=== PATIENT | male | born 1980 | race African-American/Black ===

== ENCOUNTER 2016-06-17 07:22 | Emergency (ER) | payer OTHER ==
[~2016-06-17] VITALS: Ht 175.3 cm; Wt 81.6 kg
[2016-06-17] MEDS ORDERED: ERYTOIN8 OS (08:28)
[2016-06-17] MEDS ORDERED: ERYTHROMYCIN OPHTH OINT OS ONE (08:30)
[2016-06-17 08:34] VITALS: BP 131/65
[2016-06-20] MEDS ORDERED: PATA2.5S OP (08:00)
[2016-06-20] MEDS ORDERED: TRAM50TA2 PO (08:00)
[2016-06-20] MEDS ORDERED: AUGM875T27 PO (08:12)
== END 2016-06-17 08:42 | disposition home or self-care (01) ==
LOC: M ED 08:41
DX: H10.32 Unspecified acute conjunctivitis, left eye (principal)

== ENCOUNTER 2016-07-20 11:26 | Inpatient (IN) | payer OTHER ==
[~2016-07-20] VITALS: Ht 176.5 cm; Wt 83.0 kg
[~2016-07-20 11:26] MED LIST: AUGM875T27 PO; ERYTOIN8 OS; PATA2.5S OU; TRAM50TA2 PO
[2016-07-20 12:57] LABS: MEAN CORPUSCULAR HEMOGLOBIN 29.5 pg (27.0-33.0); MEAN CORPUSCULAR HGB CONC 34.2 g/dl (32.0-36.5); MEAN CORPUSCULAR VOLUME 86.1 fl (80.0-96.0); RED CELL DISTRIBUTION WIDTH 13.5 % (11.5-14.5); WHITE BLOOD COUNT 6.3 K/mm3 (4.0-10.0)
[2016-07-20 13:05] LABS: METHADONE URINE NEGATIVE (NEGATIVE)
[2016-07-20 13:07] LABS: ALBUMIN 4.2 GM/DL (3.2-5.2); ALBUMIN/GLOBULIN RATIO 1.17 (1.00-1.93); ALKALINE PHOSPHATASE 84 U/L (45-117); ALT/SGPT 76 U/L (12-78); ANION GAP 9 MEQ/L (8-16); AST/SGOT 95 U/L (15-37); BILIRUBIN,DIRECT 0.1 MG/DL (0.0-0.2); BILIRUBIN,TOTAL 0.5 MG/DL (0.2-1.0); BLOOD UREA NITROGEN 16 MG/DL (7-18); CALCIUM LEVEL 8.8 MG/DL (8.5-10.1); CARBON DIOXIDE LEVEL 25 MEQ/L (21-32); CHLORIDE LEVEL 105 MEQ/L (98-107); CREATININE FOR GFR 1.19 MG/DL (0.70-1.30); GLOMERULAR FILTRATION RATE > 60.0 (>60); GLUCOSE, FASTING 97 MG/DL (70-105); POTASSIUM SERUM 4.1 MEQ/L (3.5-5.1); SODIUM LEVEL 139 MEQ/L (136-145); TOTAL PROTEIN 7.8 GM/DL (6.4-8.2)
[2016-07-20] MEDS ORDERED: MAALOX 30 ML SUSP *UDC PO PRN (14:15)
[2016-07-20] MEDS ORDERED: traZODone 50 MG TAB PO PRN (14:15)
[2016-07-20] MEDS ORDERED: traMADol 50 MG TAB PO PRN (14:15)
[2016-07-20] MEDS ORDERED: ACETAMINOPHEN TAB 650MG DOSE (2X325MG) PO PRN (14:15)
[2016-07-20] MEDS ORDERED: MOM 30ML SUSPENSION UDC PO PRN (14:15)
[2016-07-20] MEDS ORDERED: ESCI10TA2 PO (14:23)
[2016-07-20] MEDS ORDERED: CETI10TA PO (14:23)
[2016-07-20] MEDS ORDERED: FLON1SPR (14:23)
[2016-07-20 15:47] VITALS: BP 136/84
[2016-07-20] MEDS ORDERED: CETIRIZINE (ZyrTEC) 10 MG TAB PO PRN (21:45)
[2016-07-20] MEDS ORDERED: FLUTICASONE PROP 0.05% NASAL SPRAY 16 GM (FLONASE) PRN (21:45)
[2016-07-20] MEDS ORDERED: OLOPATADINE 0.1% OPHTH SOL 5ML(PATANOL) OU PRN (21:45)
[2016-07-21 07:36] LABS: ALBUMIN 3.8 GM/DL (3.2-5.2); ALBUMIN/GLOBULIN RATIO 1.23 (1.00-1.93); BILIRUBIN,DIRECT 0.2 MG/DL (0.0-0.2); BILIRUBIN,TOTAL 0.6 MG/DL (0.2-1.0); TOTAL PROTEIN 6.9 GM/DL (6.4-8.2)
--- NOTE | 2016-07-21 08:17 | HPE ---
DATE OF ADMISSION: 07/20/2016 Please refer to psychiatric history and evaluation for further details on this admission. This examination and history is intended for medical issues which may need treatment, followup or consult on this 36-year-old male. PRIMARY CARE PROVIDER: Vipin. ALLERGIES: No known allergies. 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 ETOH none. Smokes none. Recreational drug use none. PAST MEDICAL HISTORY: Environmental allergies. PAST SURGICAL HISTORY: Negative. HOME MEDICATIONS: - cefatrizine 10 mg by mouth daily as needed allergies - Lexapro 10 mg by mouth daily - Flonase one spray per nostril twice daily as needed allergies - Patanol 0.1% solution one drop both eyes daily as needed allergies - tramadol 50 mg by mouth every 6 hours as needed for back pain FAMILY HISTORY: Noncontributory. CBC was normal. Electrolytes are normal. AST 95. Toxicology screen was negative. Ten systems review was done and other than environmental allergies, patient had no complaints. No complaints of back pain. PHYSICAL EXAMINATION: 36-year-old cooperative male in no acute distress. Height 69.5 inches, weight 83 kg. BMI 26.6. Blood pressure 136/84, pulse 60, respirations 16, temperature 97.6. The patient is alert and oriented times three. Pupils equal and reactive to light. Extraocular movements intact. Cornea and sclera clear. Conjunctiva normal. No facial asymmetry. Pharynx, tongue and gums pink and moist. Tongue is midline. Neck is supple, without lymphadenopathy. No thyromegaly. No goiter. Carotids 2+ without bruit. Chest clear to auscultation, without wheeze or retraction. Heart is regular. Abdomen benign. Bowel sounds positive. Genitourinary ()/Rectal: Not done. Extremities show equal strength, full range of motion. No cyanosis, clubbing or edema. Peripheral pulses equal and palpable bilaterally. Skin is warm and dry. IMPRESSION/PLAN: Psychiatric plan per psychiatry. History of environmental allergies. Continue cefatrizine, Flonase and Patanol. No acute medical issues other than AST mildly elevated. Will recheck a liver profile in the morning.
[2016-07-21 21:00] VITALS: BP 144/81
[2016-07-22 06:35] VITALS: BP 106/75
--- NOTE | 2016-07-22 15:32 | MHIPNPDOC ---
[facility] Progress Note Progress Note DATE OF SERVICE: 07/22/16 INTERVAL HISTORY: Medication Side effects: The patient is not been started on any psychiatric medications at this time Behavior/events: Has become mildly more social but still reclusive to his room Group Attendance: Has attended groups intermittently Psychiatric Symptoms: Describes difficulty with eating and disrupted sleep pattern. He stated that he had a nightmare the previous evening and that this was problematic until he is awoken by the 15 minute checks. He describes he still feels fairly depressed and feels as though he wants to stay and patient as he is concerned that his situation is severe enough that he is not able to attend to his needs as well as outpatient. VITAL SIGNS: See below. NEW TEST RESULTS: See below CURRENT MEDICATIONS: See below. MENTAL STATUS EXAMINATION: MENTAL STATUS EXAMINATION: General: Well dressed with good hygiene Speech: Spontaneous and fluid Thought processes: Linear and logical Thought content: Perseveration on negativity Abstract reasoning, and computation: Intact Description of associations: Intact Description of abnormal or psychotic thoughts:Denies any suicidal or homicidal ideation. Denies any auditory or visual hallucinations. Does not appear to be responding to internal stimuli. Does not appear to be endorsing any bizarre or paranoid ideation. Judgment: Fair Insight: Fair to poor Orientation: Alert and orientated 3 Recent and remote memory: Intact Attention span and concentration: Intact Fund of knowledge: Adequate Mood: "Bad" Affect: Dysthymic with a constricted range DIAGNOSES: 1. Unspecified bipolar disorder. ASSESSMENT: The patient appears to be still suffering from symptoms despite the therapeutic environment he is agreed to try medicine in order to help with his bipolar depression MANAGEMENT PLAN: Medications: Start Abilify 5 mg at night and Rozerem 4 mg at night when necessary discontinue trazodone as patient does not want to use Psychotherapy: Encourage group therapy Social: Related information from patient to social worker psychiatric about patient wanting clinical information to be given to his jag for his upcoming court case Misc: None Disposition: The patient will need of further inpatient stay to address severe depression with grave disability, whom is unlikely to do [place] an outpatient without further stabilization. TIME SPENT: 20 minutes. Vital Signs Vital Signs Date Time Temp Pulse Resp B/P (MAP) Pulse Ox O2 Delivery O2 Flow Rate FiO2 07/22/16 06:35 97.0 65 20 106/75 (85) 07/20/16 15:47 98 Room Air Current Medications Current Medications Acetaminophen (Tylenol Tab) 650 mg Q6HP PRN PO HEADACHE or DISCOMFORT; Start at 14:15; Stop 08/19/16 at 14:14 Al Hydrox/Mg Hydrox/Simethicone (Mylanta) 30 ml Q4HP PRN PO HEARTBURN/ INDIGESTION; Start 07/20/16 at 14:15; Stop 08/19/16 at 14:14 Aripiprazole (AbiLIFY) 5 mg QHS PO ; Start 07/22/16 at 21:00; Stop 08/21/16 at 20: 59 Cetirizine HCl (ZyrTEC) 10 mg DAILY PRN PO allergies; Start 07/20/16 at 21:45; Stop 08/19/16 at 21:44 Fluticasone Propionate (Flonase 0.05% Nasal [place]) 1 SPRAY IN EACH NOSTRIL BIDP PRN NA allergies; Start 07/20/16 at 21:45; Stop 08/19/16 at 21:44 Home Med (Med Rec Complete!) ASDIRECTED XX ; Start 07/20/16 at 14:30; Stop at 14:30; Status DC Magnesium Hydroxide (Milk Of Magnesia) 30 ml DAILYPRN PRN PO CONSTIPATION; Start 07/20/16 at 14:15; Stop 08/19/16 at 14:14 Olopatadine HCl (Patanol) 1 drop DAILYPRN PRN OU allergies; Start 07/20/16 at 21 :45; Stop 08/19/16 at 21:44 Ramelteon (Rozerem) 4 mg QHS PRN PO sleep; Start 07/22/16 at 15:30; Stop at 15:29 Tramadol HCl (Ultram) 50 mg Q8HP PRN PO PAIN; Start 07/20/16 at 14:15; Stop 01/03 at 14:14 Trazodone HCl (Desyrel) 50 mg QHSP PRN PO INSOMNIA; Start 07/20/16 at 14:15; Stop 07/22/16 at 15:20; Status DC Allergies Coded Allergies: No Known Allergies (Unverified , 06/17/16) GME ATTESTATION My preceptor for this patient encounter was physically present in the building during the encounter and was fully available. As needed, all aspects of the patient interview, examination, medical decision making process, and medical care plan development were reviewed and approved by the preceptor. Preceptor is aware and concurs with the plan as stated in the body of this note and will attest to such by his/her cosignature. TANVI BLAS DO July 22, 2016 15:32
--- NOTE | 2016-07-22 16:31 | MHHPE ---
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 As per the mental health evaluation by Ms. Gusman on his presentation, he described feeling that his 16 years of service in the was being undermined and that he was being Article 15, due to reasons that were superfluous, he was not able to contract for safety at that time. When the patient was met with today, the patient described that although he had symptoms of post-traumatic stress disorder elaborated in his chart work received from [facility], he had the symptoms of hypervigilance and intrusive memories had been resolving on their own without any significant psychiatric intervention. He described that he regularly saw [facility] for talking therapy, but he did describe experiencing depressed mood for the last several months, that became increasingly severe associated with insomnia, fatigue, concentration, focus deficit, hopelessness and a loss of interest in his daily activities. He describes additionally at times he would become hyperphagic and have a more reactive mood at times. He noticed that he did not engage in his normal activities that he enjoys, such as working out and found himself gaining weight where he was described normally before as "very lean." He initially described some vague symptoms of bipolarity, in which there were times in the past where he would go several months without it being more than 3-4 hours at a time that he would be full of energy and impulsive. He described that during one of these episodes he bought a brand new Humvee, despite having recently paid off his last car and noted that he generally would speed very quickly on his motorcycle, much more than he would regularly do. He describes he has never been admitted for such an episode in the past, and had noticed that no one had brought this up to him as a particular problem. He did describe that he does have worry about deadlines, especially when he feels depressed as he is not able to meet them, but these are primarily situational. REVIEW OF PSYCHIATRIC SYMPTOMS: Affective: As above. Anxiety: The patient denies experiencing any discrete episodes of anxiety associated with panic, diaphoresis, chest tightness, or shortness of breath. He does describe worry, but not to an excessive degree and it is usually associated with provoking factors. Trauma: As above. Patient does not meet criteria for post-traumatic stress disorder. Psychosis: The patient denies experiencing any auditory or visual hallucinations in the past or present. He denies experiencing any overt paranoid or delusional ideation in the past. PAST PSYCHIATRIC HISTORY: The patient has never been admitted. Has seen psychiatry only briefly in the past for evaluation of post-traumatic stress disorder. He has never been to an inpatient [facility], and has no history of self-harming behaviors. He reports no previous history of psychiatric medications. FAMILY PSYCHIATRIC HISTORY: He is unaware of any psychiatric histories in his family. SOCIAL HISTORY: The patient grew up in [place], to a generally calm-headed father, but a reactive and sometimes over nichols mother. He describes that he was able to graduate high school, and that he did have a long-term romantic relationship of which he has a daughter from, but that he never that woman, and although he has attempted to be close to her, he describes that he is "unable to." He has no legal history, other than a recent Article 15 for not showing up to a deployment reportedly. However, he is fighting that. He has received disciplinary action for that. 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 He currently resides alone and has never been . MEDICAL HISTORY: He only has environmental allergies. ALLERGIES: He has no known allergies. ADDICTION: Patient does not describe that he uses alcohol to excess. Denies any tobacco or illicit drug use. MENTAL STATUS EXAMINATION: Vital signs: Temperature 96.6, pulse 60, respiratory rate 16, blood pressure 136/84, 98% on room air. The patient is met with in the room with a medical student. He appears to be well-dressed and well-groomed. He greets the interviewer appropriately when he walks in the room. His gait appears generally normal. His mood is described as "okay." His affect is dysthymic and constricted. His thought process appears coherent and generally linear. His thought content consists of a lack of suicidal or homicidal ideation. At this time he denies any auditory or visual hallucinations and does not appear to be responding to internal stimuli. He demonstrates no overtly bizarre paranoid ideation. He appears alert and oriented to his surroundings. Able to relay cogent information. He demonstrates no psychomotor agitation, retardation, tremors or dystonias. His insight and judgment are described as fair. ASSESSMENT: Patient is a 36-year-old male with symptoms consistent with some form of bipolarity. It is not entirely clear of the nature of his condition, but due to that complexity, his treatment will likely require more intensive medical treatment in order to avert and overt conversion to elizabeth. He indeed does suffer from bipolar disorder. DIAGNOSES: Unspecified bipolar disorder. PLAN: At this time, medication options were discussed with the patient including the option of Wellbutrin , an agent is least likely to cause conversion to elizabeth. Additionally, Abilify was offered as well, as this will likely cause more mood stabilizing effects and it is approved for bipolar depression. It is unclear whether the patient is suffering from dysthymia or bipolar II. The patient was given some time to make a decision. Continue psychiatric admission and gather further collateral information. PROBLEMS: Anxiety, depression, poor coping skills. My preceptor for this patient encounter was Dr. Tara Alex. The preceptor was physically present in the building during the encounter and was fully available as needed. All aspects of the patient interview, examination, medical decision making process, and medical care plan development were reviewed and approved by the preceptor. The preceptor is aware and concurs with the plan as stated in the body of this note and will attest to such by his/her co-signature. HANNA
[2016-07-22 18:00] VITALS: BP 130/88
[2016-07-23 05:55] VITALS: BP 122/75
[2016-07-23 06:45] VITALS: BP 122/75
--- NOTE | 2016-07-23 15:53 | IPN ---
DATE: 07/23/2016 CHIEF COMPLAINT: Says feels the same. SUBJECTIVE: He is seen for followup in the presence of staff. He says feels the same, and is concerned that being here does not change his situation on the outside, says he does not think that he will be able to return to the same unit, expresses frustrations over that. Sleep has improved. Appetite is fair. Denies any suicidal thoughts or intents. MENTAL STATUS EXAMINATION: Neat, cooperative. No agitation. He is coherent. Affect is restricted, but shows some reactivity. Denies any thoughts of harming himself or anyone else at present, no overt evidence of psychosis. Judgment is questionable, as is insight. ASSESSMENT: 1. Unspecified bipolar disorder. 2. Rule out persistent depressive disorder. PLAN: Continue current care, including the Abilify, which has just been started. I would suggest that he participate in activities in the unit. Concerns regarding his returning to the same work situation, the unit, ought to be discussed prior to discharge. VITAL SIGNS: Are as listed: Blood pressure 122/75, pulse 58, temperature 97.5.
[2016-07-23 18:00] VITALS: BP 122/69
[2016-07-24 06:18] VITALS: BP 155/74
[2016-07-24 18:00] VITALS: BP 122/70
--- NOTE | 2016-07-24 20:45 | IPN ---
DATE: 07/24/2016 CHIEF COMPLAINT: Feels okay. SUBJECTIVE: Is seen for followup in the presence of staff. Says feels okay, also suggests has had concerns about returning to the unit. Says that this is his main worry. MENTAL STATUS EXAMINATION: He is neat. He is lying in bed. He is cooperative. No agitation. No psychomotor retardation. Coherent. Affect is restricted but reactive. He denies any thoughts of harming himself or anyone else at present. No evidence of psychosis. Judgment is fair. Insight is fair as well. ASSESSMENT: 1. Unspecified bipolar disorder. 2. Rule out persistent depressive disorder. PLAN: Continue current care and observations. Encouraged participation in activities in the unit. Further recommendations will be made depending on the clinical picture. He will be seeing his assigned psychiatrist tomorrow.
[2016-07-24] MEDS: RAMELTEON 8 MG TAB (ROZEREM) PO PRN (23:33)
[2016-07-25 06:54] VITALS: BP 136/65
[2016-07-25] MEDS: LURASIDONE 20 MG TAB (LATUDA) PO SCH (17:45)
--- NOTE | 2016-07-25 17:51 | MHIPNPDOC ---
[facility] Progress Note Progress Note DATE OF SERVICE: 07/25/16 INTERVAL HISTORY: Medication Side effects: The patient reports having jaw clenching and tightness with the Abilify over the weekend, did not have any other side effects Behavior/events: Has been reclusive to his room and generally difficult to bring out. However he is friendly and amenable upon approach with no episodes of agitation Group Attendance: Has not been attending groups fairly frequently although does intermittently come to groups though not noted engagement in the process Psychiatric Symptoms:His depressive symptoms have not resolved he still feels fairly hopeless and anhedonic. He describes that he is having difficulty socializing and engaging in the therapeutic milieu. He describes that he is still having anxiety about the duration with the principal military analyst and the possibility of having a chapter 15 proceeding VITAL SIGNS: See below. NEW TEST RESULTS: See below CURRENT MEDICATIONS: See below. MENTAL STATUS EXAMINATION: General: Well dressed with good hygiene Speech: Spontaneous and fluid Thought processes: Linear and logical Thought content: Perseverative on depression Abstract reasoning, and computation: Intact Description of associations: Intact Description of abnormal or psychotic thoughts:Denies any suicidal or homicidal ideation. Denies any auditory or visual hallucinations. Does not appear to be responding to internal stimuli. Does not appear to be endorsing any bizarre or paranoid ideation. Judgment: Fair Insight: Poor Orientation: Alert and orientated 3 Recent and remote memory: Intact Attention span and concentration: Intact Fund of knowledge: Adequate Mood: "Okay" Affect: Dysthymic and constricted DIAGNOSES: 1. Unspecified bipolar disorder. 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 He is amenable trying Latuda after informed consent was completed MANAGEMENT PLAN: Medications: Discontinue Abilify and start Latuda 20 mg this afternoon monitor for side effects Psychotherapy: Encourage group attendance Social: Social work to see about chain of command meeting to coordinate efforts for [facility] hydrator and other legal issues that are likely stressors for the patient Misc: Let her completed on Monday afternoon that was sent to his jag's office at the patient's behest with a release of information signed Disposition: The patient will need of further inpatient stay to address severe depression. TIME SPENT: 25 minutes. Vital Signs Vital Signs Date Time Temp Pulse Resp B/P (MAP) Pulse Ox O2 Delivery O2 Flow Rate FiO2 07/25/16 06:54 97.9 63 16 136/65 (88) 07/23/16 05:55 Room Air 07/20/16 15:47 98 Current Medications Current Medications Acetaminophen (Tylenol Tab) 650 mg Q6HP PRN PO HEADACHE or DISCOMFORT; Start at 14:15; Stop 08/19/16 at 14:14 Al Hydrox/Mg Hydrox/Simethicone (Mylanta) 30 ml Q4HP PRN PO HEARTBURN/ INDIGESTION; Start 07/20/16 at 14:15; Stop 08/19/16 at 14:14 Aripiprazole (AbiLIFY) 5 mg QHS PO Last administered on 07/24/16 20:54; Start 07/22/16 at 21:00; Stop 07/25/16 at 13:14; Status DC Cetirizine HCl (ZyrTEC) 10 mg DAILY PRN PO allergies; Start 07/20/16 at 21:45; Stop 08/19/16 at 21:44 Fluticasone Propionate (Flonase 0.05% Nasal [place]) 1 SPRAY IN EACH NOSTRIL BIDP PRN NA allergies; Start 07/20/16 at 21:45; Stop 08/19/16 at 21:44 Home Med (Med Rec Complete!) ASDIRECTED XX ; Start 07/20/16 at 14:30; Stop at 14:30; Status DC Lurasidone HCl (Latuda) 20 mg DAILY@18 PO Last administered on 07/25/16 17:45; Start 07/25/16 at 18:00; Stop 08/24/16 at 17:59 Magnesium Hydroxide (Milk Of Magnesia) 30 ml DAILYPRN PRN PO CONSTIPATION; Start 07/20/16 at 14:15; Stop 08/19/16 at 14:14 Olopatadine HCl (Patanol) 1 drop DAILYPRN PRN OU allergies; Start 07/20/16 at 21 :45; Stop 08/19/16 at 21:44 Ramelteon (Rozerem) 4 mg QHS PRN PO sleep Last administered on 07/24/16 23:33; Start 07/22/16 at 15:30; Stop 08/21/16 at 15:29 Tramadol HCl (Ultram) 50 mg Q8HP PRN PO PAIN; Start 07/20/16 at 14:15; Stop 01/03 at 14:14 Trazodone HCl (Desyrel) 50 mg QHSP PRN PO INSOMNIA; Start 07/20/16 at 14:15; Stop 07/22/16 at 15:20; Status DC Allergies Coded Allergies: No Known Allergies (Unverified , 06/17/16) GME ATTESTATION My preceptor for this patient encounter was physically present in the building during the encounter and was fully available. As needed, all aspects of the patient interview, examination, medical decision making process, and medical care plan development were reviewed and approved by the preceptor. Preceptor is aware and concurs with the plan as stated in the body of this note and will attest to such by his/her cosignature. TANVI BLAS DO July 25, 2016 17:51
[2016-07-25 18:00] VITALS: BP 112/71
[2016-07-25] MEDS: RAMELTEON 8 MG TAB (ROZEREM) PO PRN (23:02)
[2016-07-26 06:50] VITALS: BP 127/68
[2016-07-26] MEDS: LURASIDONE 20 MG TAB (LATUDA) PO SCH (18:17)
[2016-07-26 18:27] VITALS: BP 144/81
--- NOTE | 2016-07-26 20:16 | MHIPNPDOC ---
[facility] Progress Note Progress Note DATE OF SERVICE: 07/26/16 HISTORY: The patient was met with today where he described he still had a minor reaction to the latuda, describing that he felt as though he had a tightness in the back of his head. However, he stated that this went away shortly after you take the medicine. 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 He discussed in great detail sense of anger and disappointment in the 's treatment of his case and felt as though he deserved more consideration than he was being given at this time. Otherwise, he discussed his considerations of what to do when he left and how he would adapt to his chain of command. VITAL SIGNS: See below. NEW TEST RESULTS: none CURRENT MEDICATIONS: See below. MENTAL STATUS EXAMINATION: General: Well dressed with good hygiene Speech: Spontaneous and fluid Thought processes: Linear and logical Thought content: perseveration on anger Abstract reasoning, and computation: Intact Description of associations: Intact Description of abnormal or psychotic thoughts: Denies any suicidal or homicidal ideation. Denies any auditory or visual hallucinations. Does not appear to be responding to internal stimuli. Does not appear to be endorsing any bizarre or paranoid ideation. 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 MANAGEMENT PLAN: Medications: continue Latuda 20 mg for now continue to monitor side effects psychotherapy: encourage group attendance, patient has been reclusive to his room the majority of the day social: chain of command meeting was completed, will be considering discharge close towards end of the week as patient appears to be improving miscellaneous: none TIME SPENT: 60 minutes Vital Signs Vital Signs Date Time Temp Pulse Resp B/P (MAP) Pulse Ox O2 Delivery O2 Flow Rate FiO2 07/26/16 18:27 96.5 58 16 144/81 (102) 07/23/16 05:55 Room Air 07/20/16 15:47 98 Current Medications Current Medications Acetaminophen (Tylenol Tab) 650 mg Q6HP PRN PO HEADACHE or DISCOMFORT; Start at 14:15; Stop 08/19/16 at 14:14 Al Hydrox/Mg Hydrox/Simethicone (Mylanta) 30 ml Q4HP PRN PO HEARTBURN/ INDIGESTION; Start 07/20/16 at 14:15; Stop 08/19/16 at 14:14 Aripiprazole (AbiLIFY) 5 mg QHS PO Last administered on 07/24/16 20:54; Start 07/22/16 at 21:00; Stop 07/25/16 at 13:14; Status DC Cetirizine HCl (ZyrTEC) 10 mg DAILY PRN PO allergies; Start 07/20/16 at 21:45; Stop 08/19/16 at 21:44 Fluticasone Propionate (Flonase 0.05% Nasal [place]) 1 SPRAY IN EACH NOSTRIL BIDP PRN NA allergies; Start 07/20/16 at 21:45; Stop 08/19/16 at 21:44 Home Med (Med Rec Complete!) ASDIRECTED XX ; Start 07/20/16 at 14:30; Stop at 14:30; Status DC Lurasidone HCl (Latuda) 20 mg DAILY@18 PO Last administered on 07/26/16 18:17; Start 07/25/16 at 18:00; Stop 08/24/16 at 17:59 Magnesium Hydroxide (Milk Of Magnesia) 30 ml DAILYPRN PRN PO CONSTIPATION; Start 07/20/16 at 14:15; Stop 08/19/16 at 14:14 Olopatadine HCl (Patanol) 1 drop DAILYPRN PRN OU allergies; Start 07/20/16 at 21 :45; Stop 08/19/16 at 21:44 Ramelteon (Rozerem) 4 mg QHS PRN PO sleep Last administered on 07/25/16 23:02; Start 07/22/16 at 15:30; Stop 08/21/16 at 15:29 Tramadol HCl (Ultram) 50 mg Q8HP PRN PO PAIN; Start 07/20/16 at 14:15; Stop 01/03 at 14:14 Trazodone HCl (Desyrel) 50 mg QHSP PRN PO INSOMNIA; Start 07/20/16 at 14:15; Stop 07/22/16 at 15:20; Status DC Allergies Coded Allergies: No Known Allergies (Unverified , 06/17/16) GME ATTESTATION My preceptor for this patient encounter was physically present in the building during the encounter and was fully available. As needed, all aspects of the patient interview, examination, medical decision making process, and medical care plan development were reviewed and approved by the preceptor. Preceptor is aware and concurs with the plan as stated in the body of this note and will attest to such by his/her cosignature. TANVI BLAS DO July 26, 2016 20:16
[2016-07-26] MEDS: RAMELTEON 8 MG TAB (ROZEREM) PO PRN (23:01)
[2016-07-27 06:08] VITALS: BP 134/82
--- NOTE | 2016-07-27 12:32 | MHIPNPDOC ---
[facility] Progress Note Progress Note DATE OF SERVICE: 07/27/16 INTERVAL HISTORY: Medication Side effects: Describes some tightness in the back of his neck, secondary to Latuda, although he says that is not causing him pain Behavior: Not aggressive, not violent. Group Attendance: Attends some groups Psychiatric Symptom change: Less anxious, less angry VITAL SIGNS: See below. NEW TEST RESULTS: See below CURRENT MEDICATIONS: See below. MENTAL STATUS EXAMINATION: General: Alert, cooperative with interview, good eye contact Speech: Normal, soft spoken Thought processes: Intact Thought content: Negative for homicidal ideation, negative for suicidal ideation , negative for psychotic thoughts. Abstract reasoning, and computation: Good Description of associations: Not loose Description of abnormal or psychotic thoughts: Not present Judgment: Poor Insight: Poor Orientation: Oriented 3 Recent and remote memory: Intact Attention span and concentration: Fair Fund of knowledge: Full Mood: "I'm anxious" Affect: Slightly anxious, not irritable, slightly depressed DIAGNOSES: 1. Unspecified bipolar disorder ASSESSMENT: Patient is stable enough to go back to [place] tomorrow when he gets discharged from the inpatient mental health unit, but he is still angry at the and he says that he has been "exploited by them". He says that he doesn't like a way that they treat him. He received some advice on coping skills that could help him adapt in the future with the . MANAGEMENT PLAN: Medications: We'll continue on Latuda, 20 mgs. by mouth every morning and Rozerem for sleep. Psychotherapy: Will continue to encourage him to attend groups Social: He continues to remain isolated in his room. Will continue to encourage him to interact more with peers and staff. 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 TIME SPENT: 25 minutes. Vital Signs Vital Signs Date Time Temp Pulse Resp B/P (MAP) Pulse Ox O2 Delivery O2 Flow Rate FiO2 07/27/16 06:08 97.4 65 16 134/82 (99) Room Air Current Medications Current Medications Acetaminophen (Tylenol Tab) 650 mg Q6HP PRN PO HEADACHE or DISCOMFORT; Start at 14:15; Stop 08/19/16 at 14:14 Al Hydrox/Mg Hydrox/Simethicone (Mylanta) 30 ml Q4HP PRN PO HEARTBURN/ INDIGESTION; Start 07/20/16 at 14:15; Stop 08/19/16 at 14:14 Aripiprazole (AbiLIFY) 5 mg QHS PO Last administered on 07/24/16 20:54; Start 07/22/16 at 21:00; Stop 07/25/16 at 13:14; Status DC Cetirizine HCl (ZyrTEC) 10 mg DAILY PRN PO allergies; Start 07/20/16 at 21:45; Stop 08/19/16 at 21:44 Fluticasone Propionate (Flonase 0.05% Nasal [place]) 1 SPRAY IN EACH NOSTRIL BIDP PRN NA allergies; Start 07/20/16 at 21:45; Stop 08/19/16 at 21:44 Home Med (Med Rec Complete!) ASDIRECTED XX ; Start 07/20/16 at 14:30; Stop at 14:30; Status DC Lurasidone HCl (Latuda) 20 mg DAILY@18 PO Last administered on 07/26/16 18:17; Start 07/25/16 at 18:00; Stop 08/24/16 at 17:59 Magnesium Hydroxide (Milk Of Magnesia) 30 ml DAILYPRN PRN PO CONSTIPATION; Start 07/20/16 at 14:15; Stop 08/19/16 at 14:14 Olopatadine HCl (Patanol) 1 drop DAILYPRN PRN OU allergies; Start 07/20/16 at 21 :45; Stop 08/19/16 at 21:44 Ramelteon (Rozerem) 4 mg QHS PRN PO sleep Last administered on 07/26/16 23:01; Start 07/22/16 at 15:30; Stop 08/21/16 at 15:29 Tramadol HCl (Ultram) 50 mg Q8HP PRN PO PAIN Last administered on 07/26/16 23: 03; Start 07/20/16 at 14:15; Stop 07/27/16 at 14:14 Trazodone HCl (Desyrel) 50 mg QHSP PRN PO INSOMNIA; Start 07/20/16 at 14:15; Stop 07/22/16 at 15:20; Status DC Allergies Coded Allergies: No Known Allergies (Unverified , 06/17/16) SULAIMAN ROE MD July 27, 2016 12:32
[2016-07-27] MEDS ORDERED: LATU20TA PO (14:58)
[2016-07-27] MEDS ORDERED: ROZE8TAB9 PO (14:58)
[2016-07-27] MEDS ORDERED: traMADol 50 MG TAB PO PRN (16:45)
[2016-07-27] MEDS: LURASIDONE 20 MG TAB (LATUDA) PO SCH (17:50)
[2016-07-27 18:00] VITALS: BP 134/77
[2016-07-27] MEDS: RAMELTEON 8 MG TAB (ROZEREM) PO PRN (22:44)
[2016-07-28 06:37] VITALS: BP 122/86
--- NOTE | 2016-07-29 09:30 | MHDSPDOC ---
[facility] Discharge Summary Discharge Summary DATE OF ADMISSION: July 20, 2016 at 14:02 DATE OF DISCHARGE: July 28, 2016 at 09:35 DISCHARGE DIAGNOSES: 1. Unspecified bipolar disorder. REASON FOR ADMISSION: The patient was admitted to the inpatient psychiatric unit after presenting severely depressed and suicidal CONSULTANTS INVOLVED: None TREATMENT AND PROGRESS ON THE UNIT : Legal status on admission: 9.39 Medication Management: tried on Abilify however he had dystonia and was switched to Latuda 20 mg of which he did well on. 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 He described that he did not wish to go back to the unit but would tolerate it for now Outpatient recommendations: continue titration of mood stabilizers and possibly do psychometric evaluations Pending studies on discharge: none DISCHARGE ASSESSMENT: 36-year-old man with a history of depression and possibly bipolar illness who presented after having severe stressors pushing him into suicidal thinking MENTAL STATUS EXAMINATION ON DISCHARGE: General: Well dressed with good hygiene Speech: Spontaneous and fluid Thought processes: Linear and logical Thought content: future orientated Abstract reasoning, and computation: Intact Description of associations: Intact Description of abnormal or psychotic thoughts:Denies any suicidal or homicidal ideation. Denies any auditory or visual hallucinations. Does not appear to be responding to internal stimuli. Does not appear to be endorsing any bizarre or paranoid ideation. Judgment: fair Insight: poor Orientation: Alert and orientated 3 Recent and remote memory: Intact Attention span and concentration: Intact Fund of knowledge: Adequate Mood: "fine" Affect: Euthymic with a full range PLAN/FOLLOWUP ARRANGEMENTS: Will follow up with [facility] upon return to his unit. The social work team worked during the predischarge meeting in order to evaluate for further issues of lethality address them fully before discharge. They worked on safety planning with the patient's family members in order to ensure that the patient will have a safe and effective discharge. The amount of time spent in the coordination of care for this patient was approximately 30 minutes. Vital Signs/I&Os Vital Signs Date Time Temp Pulse Resp B/P (MAP) Pulse Ox O2 Delivery O2 Flow Rate FiO2 07/28/16 06:37 98.1 62 16 122/86 (98) 07/27/16 18:00 Room Air Medications Scheduled Lurasidone Hydrochloride (Latuda) 20 Mg Tab, 20 MG PO DAILY@18 for MOOD, #10 Scheduled PRN (Patanol) 0.1 % [place], 1 DROP OU DAILY PRN for allergies, (Reported) (Flonase Allergy Relief) 50 Mcg/Act Spr, 1 SPRAY NA BID PRN for allergies, ( Reported) Cetirizine HCl (Cetirizine HCl) 10 Mg Tab, 10 MG PO DAILY PRN for allergies, ( Reported) Ramelteon (Rozerem) 8 Mg Tab, 4 MG PO QHS PRN for sleep, #10 Allergies Coded Allergies: No Known Allergies (Unverified , 06/17/16) GME ATTESTATION My preceptor for this patient encounter was physically present in the building during the encounter and was fully available. As needed, all aspects of the patient interview, examination, medical decision making process, and medical care plan development were reviewed and approved by the preceptor. Preceptor is aware and concurs with the plan as stated in the body of this note and will attest to such by his/her cosignature. TANVI BLAS DO July 29, 2016 09:30
--- NOTE | 2016-07-29 22:00 | DSES ---
DATE OF ADMISSION: 07/20/2016 DATE OF DISCHARGE: 07/28/2016 DISCHARGE DIAGNOSIS: Unspecified bipolar disorder. DISCHARGE MEDICATIONS: Latuda 20 mg daily. HOSPITAL COURSE: The patient was under a 9:39 legal status from the [facility] (ER) due to severe depression and suicidal ideation in the context of multiple psychosocial stressors. The patient was subsequently evaluated and determined to have a form of mild bipolar illness. During the admission, he requested a note be sent to his [employer] real [employer] associate attorney due to Article 15 proceedings, of which was provided once a release of information was signed. The patient was tried on Abilify 5 mg. However, this was both ineffective for treating his depression and he suffered some dystonic side effects. He was subsequently switched to Latuda 20 mg which he appeared to tolerate fairly well. After several days of engagement in the psychotherapy program, the patient became more engaged and he had become interested in discharge. He had a chain of command meeting that went well and he was subsequently discharged with no further incidences and symptoms sufficiently resolved. During his admission, he had no episodes of anxiety or agitation requiring as-needed medication. His behavior was otherwise friendly and amenable. DISCHARGE MENTAL STATUS EXAMINATION: VITAL SIGNS: Temperature 98.1, pulse 62, respiratory rate 16, blood pressure 122/86. My preceptor for this patient encounter was Dr. Tara Alex. The preceptor was physically present in the building during the encounter and was fully available as needed. All aspects of the patient interview, examination, medical decision making process, and medical care plan development were reviewed and approved by the preceptor. The preceptor is aware and concurs with the plan as stated in the body of this note and will attest to such by his/her co-signature.
== END 2016-07-28 09:35 | disposition home or self-care (01) | DRG 885 ==
LOC: M ED 12:57 → M ED INP 14:02 → M PSY 15:40
PROVIDERS: ADMIT Psychiatry & Neurology Child & Adolescent Psychiatry; ATTEND Psychiatry & Neurology Child & Adolescent Psychiatry
DX: F31.9 Bipolar disorder, unspecified (principal); R45.851 Suicidal ideations; J30.1 Allergic rhinitis due to pollen; Z79.899 Other long term (current) drug therapy

== ENCOUNTER 2017-01-02 13:19 | Emergency (ER) | payer OTHER ==
[~2017-01-02] VITALS: Ht 175.3 cm; Wt 84.1 kg
[~2017-01-02 13:19] MED LIST changes: -AUGM875T27 PO; +AUGM875T28 PO; +CETI10TA PO; +ESCI10TA2 PO; +FLON1SPR; +LATU20TA PO; +ROZE8TAB16 PO
[2017-01-02] MEDS ORDERED: ASPI325T28 (13:29)
[2017-01-02] MEDS ORDERED: MELO15TA4 (13:29)
[2017-01-02] MEDS ORDERED: IBUP80TA (13:29)
[2017-01-02] MEDS ORDERED: VITA-122 (13:29)
[2017-01-02] MEDS ORDERED: CYCL10TA (13:29)
[2017-01-02] MEDS ORDERED: VITA100T98 (13:29)
[2017-01-02] MEDS ORDERED: DIAZ5TAB (13:29)
[2017-01-02] MEDS ORDERED: FISH1000 (13:29)
[2017-01-02] MEDS ORDERED: NS 1,000 ML IV SCH (13:52)
[2017-01-02] MEDS ORDERED: ASPIRIN 81 MG CHEW TABLET PO ONE (14:00)
[2017-01-02 14:22] LABS: BASO % 0.8 % (0.0-1.0); EOS # 0.1 10^3/uL (0.0-0.50); EOS % 1.5 % (0.0-3.0); IMMATURE GRANULOCYTE % 0.2 % (0-0); LYMPH # 2.2 10^3/uL (1.5-4.5); LYMPH % 41.5 % (24.0-44.0); MEAN CORPUSCULAR HEMOGLOBIN 28.5 pg (27.0-33.0); MEAN CORPUSCULAR HGB CONC 33.6 g/dl (32.0-36.5); MONO # 0.8 10^3/uL (0.0-0.8); NEUTROPHILS # 2.1 10^3/uL (1.8-7.7); PLATELET COUNT, AUTOMATED 229 10^3/uL (150-450); RED CELL DISTRIBUTION WIDTH 13.2 % (11.5-14.5); WHITE BLOOD COUNT 5.3 10^3/uL (4.0-10.0)
[2017-01-02] MEDS: NITROGLYCERIN 0.4 MG SUBL TABLET SL PRN ×2 (14:23→14:42)
[2017-01-02 14:42] VITALS: BP 129/81
--- NOTE | 2017-01-02 14:48 | REP ---
Chest two views HISTORY: Chest pain Comparison: None The lungs are clear. The heart is normal in size. The pulmonary vasculature is normal in appearance. The bony structure is intact. IMPRESSION: No acute disease. Signed by Brennon Sawant MD 01/02/2017 02:39 P
[2017-01-02 14:51] LABS: PLT CLUMPS? POS FLAG; POS COUNT POS FLAG
[2017-01-02 14:55] LABS: ALBUMIN 4.1 GM/DL (3.2-5.2); ALBUMIN/GLOBULIN RATIO 1.11 (1.00-1.93); ALKALINE PHOSPHATASE 118 U/L (45-117); ALT/SGPT 64 U/L (12-78); ANION GAP 9 MEQ/L (8-16); AST/SGOT 34 U/L (15-37); BILIRUBIN,DIRECT 0.1 MG/DL (0.0-0.2); BILIRUBIN,TOTAL 0.4 MG/DL (0.2-1.0); BLOOD UREA NITROGEN 9 MG/DL (7-18); CALCIUM LEVEL 8.8 MG/DL (8.5-10.1); CARBON DIOXIDE LEVEL 26 MEQ/L (21-32); CHLORIDE LEVEL 105 MEQ/L (98-107); CREATININE FOR GFR 1.31 MG/DL (0.70-1.30); GLOMERULAR FILTRATION RATE > 60.0 (>60); GLUCOSE, FASTING 80 MG/DL (70-105); POTASSIUM SERUM 4.7 MEQ/L (3.5-5.1); SODIUM LEVEL 140 MEQ/L (136-145); TOTAL PROTEIN 7.8 GM/DL (6.4-8.2)
[2017-01-02 18:49] VITALS: BP 128/78
--- NOTE | 2017-01-02 19:12 | ECGEPIP ---
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 Order Number: [id number] Reading MD: Isaias Foster Measurements Intervals [place] Rate: 62 P: 22 UT: 221 QRS: -12 QRSD: 98 T: -14 QT: 389 QTc: 397 Interpretive Statements SINUS RHYTHM WITH FIRST DEGREE AV BLOCK NONSPECIFIC T-WAVE ABNORMALITY NO PRIORS Electronically Signed On 01-02-2017 19:12:12 EDT by Isaias Foster
--- NOTE | 2017-01-03 05:37 | ECGEPIP ---
Stationary ECG Study 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
== END 2017-01-02 18:55 | disposition home or self-care (01) ==
LOC: M ED 13:19
DX: R07.89 Other chest pain (principal); R94.31 Abnormal electrocardiogram [ECG] [EKG]; Z82.49 Family history of ischemic heart disease and other diseases of the circulatory system; Z79.82 Long term (current) use of aspirin; Z79.899 Other long term (current) drug therapy

== ENCOUNTER 2017-06-07 02:33 | Emergency (ER) | payer OTHER | END 2017-06-07 04:53 | disposition left against medical advice (07) | LOC: M ED 02:33 | DX: H93.90 Unspecified disorder of ear, unspecified ear (principal); Z53.21 Procedure and treatment not carried out due to patient leaving prior to being seen by health care provider ==

== ENCOUNTER 2017-06-07 05:13 | Emergency (ER) | payer OTHER | END 2017-06-07 06:51 | disposition home or self-care (01) | LOC: M ED 05:13 | DX: H66.92 Otitis media, unspecified, left ear (principal); Z86.69 Personal history of other diseases of the nervous system and sense organs; R51 Headache; Z79.899 Other long term (current) drug therapy | CPT/HCPCS: 99282 ==